=== PATIENT | female | born 1985 | race Caucasian/White ===

== ENCOUNTER 2016-06-21 21:11 | Inpatient (IN) | payer BC ==
[2016-06-21] MEDS ORDERED: Butorphanol 1 MG/ML SDV IVPUSH PRN (21:33)
[2016-06-21] MEDS ORDERED: Carboprost Tromethamine 250 MCG/1 ML Amp IM PRN (21:33)
[2016-06-21] MEDS ORDERED: Methylergonovine 0.2 MG/1 ML Amp IM PRN (21:33)
[2016-06-21] MEDS ORDERED: Water For Irrigation,Sterile 1,000 ML Container IRR PRN (21:33)
[2016-06-21] MEDS ORDERED: Misoprostol 200 MCG Tab PO PRN (21:33)
[2016-06-21] MEDS ORDERED: Sodium Chloride 0.9% 10 ML Syringe FLUSH PRN (21:33)
[2016-06-21] MEDS ORDERED: Sodium Chloride 0.9% 2.5 ML Syringe FLUSH PRN (21:33)
[2016-06-21] MEDS ORDERED: Lidocaine 1% 50 ML MDV INJECT PRN (21:33)
[2016-06-21] MEDS ORDERED: Nalbuphine 10 MG/1 ML Vial IVPUSH PRN (21:33)
[2016-06-21] MEDS: Lactated Ringers 1,000 ML IV SCH ×2 (21:40→23:01)
[2016-06-21] MEDS ORDERED: ceFAZolin 1 GM Vial IM SCH (21:45)
[2016-06-21] MEDS ORDERED: ceFAZolin 2 GM in Premix Bag 1 BAG IV ONE (21:54)
--- NOTE | 2016-06-21 23:20 | PCM.PREANE ---
Preanesthetic Assessment - Procedure Proposed Procedure: term in active labor. Requested labor epidural by RN per Dr. Lyle order. - Anesthesia/Transfusion/Family Hx Anesthesia History: Prior Anesthesia Without Reaction Family History of Anesthesia Reaction: No Transfusion History: No Prior Transfusion(s) Intubation History: Unknown - Review of Systems General: Other (labor pains) Pulmonary: No Symptoms Cardiovascular: No Symptoms Gastrointestinal: No symptoms, Other (hx of GERD with ) Neurological: No Symptoms Other: Reports: Thyroid Problems (hypothyroid on syntroid) - Physical Assessment Height: 5 ft 3 in Weight: 130 lb ASA Class: 2E ROM/Head Extension: Full Lungs: Normal respiratory effort Cardiovascular: Regular Rate - Lab Values: Laboratory Last Values WBC 11.35 K/uL (4.0-11.0) H 06/21/16 21:42 RBC 4.23 M/uL (4.30-5.90) L 06/21/16 21:42 Hgb 13.9 g/dL (12.0-16.0) 06/21/16 21:42 Hct 39.8 % (36.0-46.0) 06/21/16 21:42 MCV 94.1 fL (80.0-98.0) 06/21/16 21:42 MCH 32.9 pg (27.0-32.0) H 06/21/16 21:42 MCHC 34.9 g/dL (31.0-37.0) 06/21/16 21:42 RDW Std Deviation 47.2 fl (28.0-62.0) 06/21/16 21:42 RDW Coeff of Wendy 14 % (11.0-15.0) 06/21/16 21:42 Plt Count 142 K/uL (150-400) L 06/21/16 21:42 MPV 10.40 fL (7.40-12.00) 06/21/16 21:42 Nucleated RBC % 0.0 /100WBC 06/21/16 21:42 Nucleated RBCs # 0 K/uL 06/21/16 21:42 POC Glucose 80 mg/dL (60-110) 06/21/16 22:45 Blood Type O POSITIVE 06/21/16 21:42 Antibody Screen NEGATIVE 06/21/16 21:42 - Allergies Allergies/Adverse Reactions: Allergies Allergy/AdvReac Type Severity Reaction Status Date / Time amoxicillin [Amoxicillin] Allergy Hives Verified 06/21/16 21:32 - Blood Blood Available: No Product(s) Available: None - Acknowledgements Anesthesia Type Planned: Regional Block Pt an Appropriate Candidate for the Planned Anesthesia: Yes Alternatives and Risks of Anesthesia Discussed w Pt/Guardian: Yes Pt/Guardian Understands and Agrees with Anesthesia Plan: Yes PreAnesthesia Questionnaire DEVELOPER ARCHITECT History: Reports: , Other (see below) Other OB/BYN History: D & C x1 Endocrine/Metabolic History: Reports: Diabetes, gestational, Hypothyroidism - Past Surgical History HEENT Surgical History: Reports: Tonsillectomy - SUBSTANCE USE Smoking Status *Q: Never Smoker - HOME MEDS Home Medications: Home Meds Levothyroxine 112 mcg PO ACBREAKFAST 06/21/16 [History] Vit W-Ca,Fe,FA(<1 mg) [ Vitamins] 1 tab PO DAILY 06/21/16 [ History] - CURRENT (IN HOUSE) MEDS Current Meds: Current Medications Butorphanol Tartrate (Stadol) 1 mg IVPUSH Q1H PRN PRN Reason: Pain Carboprost Tromethamine (Hemabate Ds) 250 mcg IM ASDIRECTED PRN PRN Reason: Post Hemorrhage Cefazolin Sodium (Ancef) 1 gm IM Q8H SANDHYA Cefazolin Sodium (Ancef) 1 gm IM Q8H SANDHYA Lactated Ringer's (Ringers, Lactated) 1,000 mls @ 150 mls/hr IV ASDIRECTED SANDHYA Last Admin: 06/21/16 23:01 Dose: 999 mls/hr Lidocaine HCl (Xylocaine 1%) 50 ml INJECT .ONCE PRN PRN Reason: Laceration repair Methylergonovine Maleate (Methergine) 0.2 mg IM ASDIRECTED PRN PRN Reason: Post Hemorrhage Misoprostol (Cytotec) 200 mcg PO .ONCE PRN PRN Reason: Post Hemorrhage Nalbuphine HCl (Nubain) 10 mg IVPUSH Q1H PRN PRN Reason: Pain (severe 7-10) Stop: 06/21/16 23:34 Sodium Chloride (Saline Flush) 10 ml FLUSH ASDIRECTED PRN PRN Reason: Keep Vein Open Sodium Chloride (Saline Flush) 2.5 ml FLUSH ASDIRECTED PRN PRN Reason: Keep Vein Open Sterile Water (Sterile Water For Irrigation) 1,000 ml IRR ASDIRECTED PRN PRN Reason: delivery Discontinued Medications Oxytocin/Lactated Ringer's (Pitocin In Lr 30 Units/500 Ml) 30 unit in 500 mls @ 999 mls/hr IV ONETIME ONE Stop: 06/21/16 22:04 Cefazolin Sodium/Dextrose 2 gm (/ Premix) 50 mls @ 100 mls/hr IV ONETIME ONE Stop: 06/21/16 22:23 Last Admin: 06/21/16 21:59 Dose: 100 mls/hr Preanesthetic Assessment - ANESTHESIA/TRANSFUSION/FAMILY HX Anesthesia/Transfusion History: Prior Anesthesia (GA without complications) Family History of Anesthesia Reaction: No - PHYSICAL ASSESSMENT Height: 5 ft 3 in Weight: 130 lb - LAB Values: Laboratory Last Values WBC 11.35 K/uL (4.0-11.0) H 06/21/16 21:42 RBC 4.23 M/uL (4.30-5.90) L 06/21/16 21:42 Hgb 13.9 g/dL (12.0-16.0) 06/21/16 21:42 Hct 39.8 % (36.0-46.0) 06/21/16 21:42 MCV 94.1 fL (80.0-98.0) 06/21/16 21:42 MCH 32.9 pg (27.0-32.0) H 06/21/16 21:42 MCHC 34.9 g/dL (31.0-37.0) 06/21/16 21:42 RDW Std Deviation 47.2 fl (28.0-62.0) 06/21/16 21:42 RDW Coeff of Wendy 14 % (11.0-15.0) 06/21/16 21:42 Plt Count 142 K/uL (150-400) L 06/21/16 21:42 MPV 10.40 fL (7.40-12.00) 06/21/16 21:42 Nucleated RBC % 0.0 /100WBC 06/21/16 21:42 Nucleated RBCs # 0 K/uL 06/21/16 21:42 POC Glucose 80 mg/dL (60-110) 06/21/16 22:45 Blood Type O POSITIVE 06/21/16 21:42 Antibody Screen NEGATIVE 06/21/16 21:42 - ALLERGIES Allergies/Adverse Reactions: Allergies Allergy/AdvReac Type Severity Reaction Status Date / Time amoxicillin [Amoxicillin] Allergy Hives Verified 06/21/16 21:32
[2016-06-21] MEDS ORDERED: Ropivacaine 0.2% 2 MG/ML 20 ML SDV ONE (23:26)
[2016-06-21] MEDS ORDERED: Ropivacaine HCl/PF 100 ML ONE (23:26)
[2016-06-21] MEDS ORDERED: fentaNYL 100 MCG/2 ML SDV ONE (23:26)
[2016-06-22] MEDS: Lactated Ringers 1,000 ML IV SCH (00:01)
[2016-06-22] MEDS: Oxytocin/Lactated Ringers 30 UNIT/500 ML BAG IV ONE ×2 (00:15→00:46)
--- NOTE | 2016-06-22 00:23 | PCM.SN ---
- Free Text/Narrative Note: Patient chart reviewed. See anesthesia documentation.Patient in active labor and on floor on all fours. Rapidly discussed epidural plan and need to get into bed as previously directed on the phone with nursing staff. Her back was prepared with betadine from the Goldstein kit. sterile drape applied. L45 interspace midline palpated and injected with 5 ml !%lidocaine. 17g Touhy needle then passed into the interspace....reset twice since bone encountered. successful loss of resistance then found, 2 ml sterile saline then injected, catheter then place to 18cm known by having removed the needle over the catheter. The catheter was secured with a provided sponge and transparent dressing. Dosing via catheter then occurred with 12ml 0.2%ropivacaine containing 100mcg fentanyl over the next 5-10 minutes. Completion of a full 20ml Ropivacaine then was completed over the next 15-20 min. Exam by RN then indicated complete dilation had occurred and Dr. Lyle was summoned. The pump will be connected if delivery does not occur in the next 30-45 minutes. I will remain at the bedside.
[2016-06-22] MEDS ORDERED: Oxytocin/Lactated Ringers 30 UNIT/500 ML BAG ONE (00:36)
[2016-06-22] MEDS ORDERED: Ibuprofen 800 MG Tab PO PRN (00:39)
[2016-06-22] MEDS ORDERED: Acetaminophen 500 MG Tab PO PRN (00:39)
[2016-06-22] MEDS ORDERED: Docusate Sodium 100 MG Cap PO PRN (00:39)
[2016-06-22] MEDS ORDERED: oxyCODONE 5 MG Tab PO PRN (00:39)
[2016-06-22] MEDS ORDERED: Witch Hazel Medicated Pads 40/Jar TOP PRN (00:39)
[2016-06-22] MEDS ORDERED: Lanolin 100% Cream 7 GM Tube TOP PRN (00:39)
[2016-06-22] MEDS ORDERED: Benzocaine/Menthol 20%-0.5% Spray 78 GM Cannister TOP PRN (00:39)
[2016-06-22] MEDS ORDERED: Bisacodyl 10 MG Supp RECTAL PRN (00:39)
--- NOTE | 2016-06-22 03:13 | OR ---
SURGEON: Agnes Lyle M.D. DATE OF PROCEDURE: 06/22/2016 DELIVERY NOTE PREOPERATIVE DIAGNOSES: 1. Thirty-eight and 3/7th week intrauterine . 2. Group B strep positive. 3. Gestational diabetes mellitus, type A1. 4. renal dilatation. POSTOPERATIVE DIAGNOSES: 1. Thirty-eight and 3/7th week intrauterine . 2. Group B strep positive. 3. Gestational diabetes mellitus, type A1. 4. renal dilatation. PROCEDURE: Term spontaneous vaginal delivery with repair of periurethral laceration. ANESTHESIA: Epidural. ESTIMATED BLOOD LOSS: Less than 300 mL. FINDINGS: Liveborn female, score 8 and 9, weighing 2870 g, placenta spontaneous, Schultze intact with 3 vessels. Upon inspection of the pelvis and perineum, there were no vaginal sidewall, cervical, rectal, or perineal lacerations. There was a small anterior periurethral laceration, which was repaired. COMPLICATIONS: None known. DISPOSITION: Mother and baby are in LDRP in good condition. BRIEF HISTORY: This is a 31-year-old female. She is G4, P1-0-2-1. She presents at 38 and 3/7th weeks gestation in active spontaneous labor, category 1 heart tones. She was started on Ancef for group B strep prophylaxis due to allergy to penicillin. She was admitted to Labor and Delivery. She progressed to 8 cm dilatation. At this point, she requested epidural, which she did receive and she progressed shortly thereafter to complete. DESCRIPTION OF PROCEDURE: With the patient in dorsal lithotomy position, with rupture of membranes, the patient pushed over 2 contractions to a 5+ station, at which time, the head was delivered spontaneously and atraumatically over the perineum with support with subsequent delivery of the 's shoulders and body without any difficulty. The infant was bulb suctioned by nose and mouth and the was handed to the mother in the presence of the nurse and Dr. Gavin, who were present for delivery. The infant was a liveborn female, score 8 and 9, weighing 2870 g. After the cord had ceased to pulsate, it was doubly clamped and cut. Cord blood was collected for cord ABGs as well as routine cord blood sampling. Pitocin was initiated after delivery of the to assist with delivery of the placenta, which was delivered spontaneously. Lazaratze intact with 3 vessels. Upon inspection of the pelvis and perineum, there were no vaginal sidewall, cervical, rectal, or perineal lacerations. There was a small anterior periurethral laceration, therefore, the urethral area was cleansed with Betadine. A Keenan catheter was placed and the [id number] suture was placed for hemostasis and to reapproximate the epithelium. The single suture adequately reapproximated the laceration. With this being complete, sponge, needle, and instrument count were correct. There were no known complications. and mother are in LDRP in good condition. LILI HUERTA /[id number]
[2016-06-22 05:55] LABS: CHLORIDE,CL 110 mmol/L (98-110); SODIUM,NA 139 mmol/L (136-146)
[2016-06-22] MEDS ORDERED: ceFAZolin 1 GM Vial IM SCH (06:00)
--- NOTE | 2016-06-22 09:30 | PCM.PNPP ---
- General Info Date of Service: 06/22/16 Functional Status: Reports: pain controlled, tolerating diet, ambulating - Review of Systems General: Reports: No Symptoms HEENT: Reports: no symptoms Pulmonary: Reports: no symptoms Cardiovascular: Reports: No Symptoms Gastrointestinal: Reports: No symptoms Genitourinary: Reports: no symptoms Musculoskeletal: Reports: no symptoms Skin: Reports: no symptoms Neurological: Reports: No Symptoms Psychiatric: Reports: no symptoms - General Info Date of Service: 06/22/16 - Patient Data Vital Signs - most recent: Last Vital Signs Temp 37.4 C 06/22/16 06:30 Pulse 71 06/22/16 06:30 Resp 18 06/22/16 06:30 BP 117/74 06/22/16 06:30 Pulse Ox 96 06/22/16 06:30 Weight - most recent: 68.039 kg I&O - last 24 hours: Intake & Output 06/21/16 06/22/16 06/22/16 22:59 06:59 14:59 Intake Total 50 3100 Balance 50 3100 Lab Results - last 24 hrs: Laboratory Results - last 24 hr 06/21/16 06/21/16 06/21/16 Range/Units 21:42 21:42 22:45 WBC 11.35 H (4.0-11.0) K/uL RBC 4.23 L (4.30-5.90) M/uL Hgb 13.9 (12.0-16.0) g/dL Hct 39.8 (36.0-46.0) % MCV 94.1 (80.0-98.0) fL MCH 32.9 H (27.0-32.0) pg MCHC 34.9 (31.0-37.0) g/dL RDW Std Deviation 47.2 (28.0-62.0) fl RDW Coeff of Wendy 14 (11.0-15.0) % Plt Count 142 L (150-400) K/uL MPV 10.40 (7.40-12.00) fL Nucleated RBC % 0.0 /100WBC Nucleated RBCs # 0 K/uL Sodium (136-146) mmol/L Potassium (3.5-5.1) mmol/L Chloride (98-110) mmol/L Carbon Dioxide (21-31) mmol/L BUN (6.0-23.0) mg/dL Creatinine (0.6-1.5) mg/dL Est Cr Clr Drug Dosing mL/min Estimated GFR (MDRD) ml/min Glucose (60-110) mg/dL POC Glucose 80 (60-110) mg/dL Calcium (8.8-10.8) mg/dL Blood Type O POSITIVE Antibody Screen NEGATIVE 06/22/16 06/22/16 Range/Units 05:08 05:08 WBC (4.0-11.0) K/uL RBC (4.30-5.90) M/uL Hgb 12.8 (12.0-16.0) g/dL Hct 37.8 (36.0-46.0) % MCV (80.0-98.0) fL MCH (27.0-32.0) pg MCHC (31.0-37.0) g/dL RDW Std Deviation (28.0-62.0) fl RDW Coeff of Wendy (11.0-15.0) % Plt Count (150-400) K/uL MPV (7.40-12.00) fL Nucleated RBC % /100WBC Nucleated RBCs # K/uL Sodium 139 (136-146) mmol/L Potassium 3.7 (3.5-5.1) mmol/L Chloride 110 (98-110) mmol/L Carbon Dioxide 21 (21-31) mmol/L BUN 13 (6.0-23.0) mg/dL Creatinine 0.6 (0.6-1.5) mg/dL Est Cr Clr Drug Dosing 111.35 mL/min Estimated GFR (MDRD) > 60.0 ml/min Glucose 85 (60-110) mg/dL POC Glucose (60-110) mg/dL Calcium 7.9 L (8.8-10.8) mg/dL Blood Type Antibody Screen Med Orders - Current: Current Medications Acetaminophen (Tylenol Extra Strength) 1,000 mg PO Q4H PRN PRN Reason: Pain Benzocaine/Menthol (Dermoplast Pain Relief 20%-0.5% Greene) 78 gm TOP ASDIRECTED PRN PRN Reason: Perineal Comfort Measure Last Admin: 06/22/16 06:29 Dose: 1 canister Bisacodyl (Dulcolax) 10 mg RECTAL .ONCE PRN PRN Reason: Constipation Docusate Sodium (Colace) 100 mg PO BID PRN PRN Reason: Constipation Emollient Ointment (Lansinoh Hpa) 0 gm TOP ASDIRECTED PRN PRN Reason: Sore Nipples Last Admin: 06/22/16 06:29 Dose: 1 tube Ibuprofen (Motrin) 800 mg PO Q6H PRN PRN Reason: Pain Last Admin: 06/22/16 06:30 Dose: 800 mg Oxycodone HCl (Oxycodone) 5 mg PO Q2H PRN PRN Reason: Pain Witch Maeve (Tucks) 1 pad TOP ASDIRECTED PRN PRN Reason: comfort care Last Admin: 06/22/16 06:28 Dose: 1 canister Discontinued Medications Butorphanol Tartrate (Stadol) 1 mg IVPUSH Q1H PRN PRN Reason: Pain Carboprost Tromethamine (Hemabate Ds) 250 mcg IM ASDIRECTED PRN PRN Reason: Post Hemorrhage Cefazolin Sodium (Ancef) 1 gm IM Q8H SANDHYA Cefazolin Sodium (Ancef) 1 gm IM Q8H [facility] Fentanyl (Sublimaze) Confirm Administered Dose 100 mcg .ROUTE .STK-MED ONE Stop: 06/21/16 23:27 Lactated Ringer's (Ringers, Lactated) 1,000 mls @ 150 mls/hr IV ASDIRECTED [facility] Last Admin: 06/22/16 00:01 Dose: 150 mls/hr Oxytocin/Lactated Ringer's (Pitocin In Lr 30 Units/500 Ml) 30 unit in 500 mls @ 999 mls/hr IV ONETIME ONE Stop: 06/21/16 22:04 Last Admin: 06/22/16 00:46 Dose: 250 mls/hr Cefazolin Sodium/Dextrose 2 gm (/ Premix) 50 mls @ 100 mls/hr IV ONETIME ONE Stop: 06/21/16 22:23 Last Admin: 06/21/16 21:59 Dose: 100 mls/hr Ropivacaine (Naropin 0.2%) Confirm Administered Dose 100 mls @ as directed .ROUTE .STK-MED ONE Stop: 06/21/16 23:27 Oxytocin/Lactated Ringer's (Pitocin In Lr 30 Units/500 Ml) Confirm Administered Dose 30 unit in 500 mls @ as directed .ROUTE .STK-MED ONE Stop: 06/22/16 00:37 Lidocaine HCl (Xylocaine 1%) 50 ml INJECT .ONCE PRN PRN Reason: Laceration repair Methylergonovine Maleate (Methergine) 0.2 mg IM ASDIRECTED PRN PRN Reason: Post Hemorrhage Misoprostol (Cytotec) 200 mcg PO .ONCE PRN PRN Reason: Post Hemorrhage Nalbuphine HCl (Nubain) 10 mg IVPUSH Q1H PRN PRN Reason: Pain (severe 7-10) Stop: 06/21/16 23:34 Ropivacaine (Naropin 0.2%) Confirm Administered Dose 20 ml .ROUTE .STK-MED ONE Stop: 06/21/16 23:27 Sodium Chloride (Saline Flush) 10 ml FLUSH ASDIRECTED PRN PRN Reason: Keep Vein Open Sodium Chloride (Saline Flush) 2.5 ml FLUSH ASDIRECTED PRN PRN Reason: Keep Vein Open Sterile Water (Sterile Water For Irrigation) 1,000 ml IRR ASDIRECTED PRN PRN Reason: delivery Last Admin: 06/22/16 00:10 Dose: 1,000 ml - Infant Interaction Infant Disposition, : at Bedside Support Person: - Recovery Exam Fundal Tone: Firm Fundal Level: At Umbilicus Fundal Placement: Midline Lochia Amount: Scant, Small Lochia Color: Rubra/Red Perineum Description: Intact, Minimal Bruising/Swelling Episiotomy/Laceration: Approximated Bladder Status: Indwelling Catheter in Place - Exam General: alert, oriented HEENT: Pupils equal Neck: supple Lungs: Clear to auscultation, Normal respiratory effort Abdomen: soft, no tenderness, no distension Extremities: no edema Skin: warm, dry, intact Wound/Incisions: healing well Neurological: no new focal deficit Psy/Mental Status: alert, normal affect, normal mood - Problem List & Annotations (1) Gestational diabetes mellitus (GDM) in childbirth SNOMED Code(s): 14083644 Code(s): O24.429 - GESTATIONAL DIABETES MELLITUS IN CHILDBIRTH, UNSP CONTROL Status: Acute Current Visit: Yes (2) Vaginal delivery SNOMED Code(s): 351653219 Code(s): O80 - ENCOUNTER FOR FULL-TERM UNCOMPLICATED DELIVERY Status: Acute Current Visit: No - Problem List Review Problem List Initiated/Reviewed/Updated: Yes - My Orders Last 24 Hours: My Active Orders 06/21/16 21:33 Heart Tones [RC] CONTINUOUS Non Stress Test [RC] PER UNIT ROUTINE May Shower [RC] ASDIRECTED Notify Provider [RC] PRN Up ad Jacqui [RC] ASDIRECTED Vaginal Exam [RC] PRN Vital Signs [RC] PER UNIT ROUTINE 06/22/16 00:39 Patient Status [ADT] Routine May Shower [RC] ASDIRECTED Up ad Jacqui [RC] ASDIRECTED Urinary Catheter Removal [RC] Per Unit Routine Vital Signs [RC] PER UNIT ROUTINE Acetaminophen [Tylenol Extra Strength] 1,000 mg PO Q4H PRN Benzocaine/Menthol [Dermoplast Pain Relief 20%-0.5% Greene] 78 gm TOP ASDIRECTED PRN Bisacodyl [Dulcolax] 10 mg RECTAL .ONCE PRN Docusate Sodium [Colace] 100 mg PO BID PRN Ibuprofen [Motrin] 800 mg PO Q6H PRN Lanolin [Lansinoh HPA] See Dose Instructions TOP ASDIRECTED PRN Witch Maeve [Tucks] 1 pad TOP ASDIRECTED PRN oxyCODONE 5 mg PO Q2H PRN Assess Lochia [WOMSER] Per Unit Routine Assess Uterine Involution [WOMSER] Per Unit Routine Peripheral IV Discontinue [OM.PC] Routine Resuscitation Status Routine 06/22/16 00:40 Perineal Care [OM.PC] Per Unit Routine 06/22/16 Breakfast Regular Diet [DIET] 06/23/16 05:11 HEMOGLOBIN/HEMATOCRIT,HH [HEME] Timed - Assessment Assessment:: PPD #1 after stable, minimal lochia, no complaints, - Plan Plan:: Remove catheter, ambulate continue care.
--- NOTE | 2016-06-22 10:40 | PCM48HPAN ---
Post Anesthesia Note - EVALUATION WITHIN 48HRS OF ANESTHETIC Vital Signs in Normal Range: Yes Patient Participated in Evaluation: Yes Respiratory Function Stable: Yes Airway Patent: Yes Cardiovascular Function Stable: Yes Hydration Status Stable: Yes Pain Control Satisfactory: Yes Nausea and Vomiting Control Satisfactory: Yes Mental Status Recovered: Yes - COMMENTS/OBSERVATIONS Free Text/Narrative:: Pressure bandage over epidural access site was removed. Skin and area dry, non- erythematous, and not tender per patient response.
--- NOTE | 2016-06-23 08:38 | PCM.PNPP ---
- General Info Date of Service: 06/23/16 Functional Status: Reports: pain controlled, tolerating diet, ambulating, urinating - Review of Systems General: Denies: Fever, Fatigue, Chills HEENT: Denies: headaches Pulmonary: Denies: shortness of breath, pleuritic chest pain, cough Cardiovascular: Denies: Chest Pain Gastrointestinal: Denies: Abdominal pain Genitourinary: Denies: dysuria, incontinence Neurological: Denies: Confusion Psychiatric: Denies: depression, mood lability, anxiety - General Info Date of Service: 06/23/16 - Patient Data Vital Signs - most recent: Last Vital Signs Temp 37.2 C 06/23/16 04:00 Pulse 69 06/23/16 04:00 Resp 18 06/23/16 04:00 BP 112/70 06/23/16 04:00 Pulse Ox 98 06/22/16 19:00 Weight - most recent: 150 lb Lab Results - last 24 hrs: Laboratory Results - last 24 hr 06/23/16 Range/Units 04:43 Hgb 13.1 (12.0-16.0) g/dL Hct 39.4 (36.0-46.0) % Med Orders - Current: Current Medications Acetaminophen (Tylenol Extra Strength) 1,000 mg PO Q4H PRN PRN Reason: Pain Benzocaine/Menthol (Dermoplast Pain Relief 20%-0.5% Sutton) 78 gm TOP ASDIRECTED PRN PRN Reason: Perineal Comfort Measure Last Admin: 06/22/16 06:29 Dose: 1 canister Bisacodyl (Dulcolax) 10 mg RECTAL .ONCE PRN PRN Reason: Constipation Docusate Sodium (Colace) 100 mg PO BID PRN PRN Reason: Constipation Emollient Ointment (Lansinoh Hpa) 0 gm TOP ASDIRECTED PRN PRN Reason: Sore Nipples Last Admin: 06/22/16 06:29 Dose: 1 tube Ibuprofen (Motrin) 800 mg PO Q6H PRN PRN Reason: Pain Last Admin: 06/22/16 06:30 Dose: 800 mg Oxycodone HCl (Oxycodone) 5 mg PO Q2H PRN PRN Reason: Pain Witch Maeve (Tucks) 1 pad TOP ASDIRECTED PRN PRN Reason: comfort care Last Admin: 06/22/16 06:28 Dose: 1 canister Discontinued Medications Butorphanol Tartrate (Stadol) 1 mg IVPUSH Q1H PRN PRN Reason: Pain Carboprost Tromethamine (Hemabate Ds) 250 mcg IM ASDIRECTED PRN PRN Reason: Post Hemorrhage Cefazolin Sodium (Ancef) 1 gm IM Q8H [facility] Cefazolin Sodium (Ancef) 1 gm IM Q8H [facility] Fentanyl (Sublimaze) Confirm Administered Dose 100 mcg .ROUTE .STK-MED ONE Stop: 06/21/16 23:27 Lactated Ringer's (Ringers, Lactated) 1,000 mls @ 150 mls/hr IV ASDIRECTED [facility] Last Admin: 06/22/16 00:01 Dose: 150 mls/hr Oxytocin/Lactated Ringer's (Pitocin In Lr 30 Units/500 Ml) 30 unit in 500 mls @ 999 mls/hr IV ONETIME ONE Stop: 06/21/16 22:04 Last Admin: 06/22/16 00:46 Dose: 250 mls/hr Cefazolin Sodium/Dextrose 2 gm (/ Premix) 50 mls @ 100 mls/hr IV ONETIME ONE Stop: 06/21/16 22:23 Last Admin: 06/21/16 21:59 Dose: 100 mls/hr Ropivacaine (Naropin 0.2%) Confirm Administered Dose 100 mls @ as directed .ROUTE .STK-MED ONE Stop: 06/21/16 23:27 Oxytocin/Lactated Ringer's (Pitocin In Lr 30 Units/500 Ml) Confirm Administered Dose 30 unit in 500 mls @ as directed .ROUTE .STK-MED ONE Stop: 06/22/16 00:37 Lidocaine HCl (Xylocaine 1%) 50 ml INJECT .ONCE PRN PRN Reason: Laceration repair Methylergonovine Maleate (Methergine) 0.2 mg IM ASDIRECTED PRN PRN Reason: Post Hemorrhage Misoprostol (Cytotec) 200 mcg PO .ONCE PRN PRN Reason: Post Hemorrhage Nalbuphine HCl (Nubain) 10 mg IVPUSH Q1H PRN PRN Reason: Pain (severe 7-10) Stop: 06/21/16 23:34 Ropivacaine (Naropin 0.2%) Confirm Administered Dose 20 ml .ROUTE .STK-MED ONE Stop: 06/21/16 23:27 Sodium Chloride (Saline Flush) 10 ml FLUSH ASDIRECTED PRN PRN Reason: Keep Vein Open Sodium Chloride (Saline Flush) 2.5 ml FLUSH ASDIRECTED PRN PRN Reason: Keep Vein Open Sterile Water (Sterile Water For Irrigation) 1,000 ml IRR ASDIRECTED PRN PRN Reason: delivery Last Admin: 06/22/16 00:10 Dose: 1,000 ml - Infant Interaction Disposition, : [place] at Bedside Support Person: - Recovery Exam Fundal Tone: Firm Fundal Level: 1 Fingerbreadths Below Umbilicus Fundal Placement: Midline Lochia Amount: Scant Lochia Color: Rubra/Red Perineum Description: Intact, Minimal Bruising/Swelling Episiotomy/Laceration: Approximated Bladder Status: Voiding Urinary Elimination: Voided Other Urinary Elimination, : catheter removed. - Exam General: alert HEENT: Pupils equal Neck: supple Lungs: Clear to auscultation, Normal respiratory effort Cardiovascular: Regular Rate, Regular Rhythm Abdomen: bowel sounds present, soft, no tenderness, no distension Extremities: no calf tenderness, edema Neurological: no new focal deficit Psy/Mental Status: alert, normal affect, normal mood - Problem List & Annotations (1) Gestational diabetes mellitus (GDM) in childbirth SNOMED Code(s): 75938796 Code(s): O24.429 - GESTATIONAL DIABETES MELLITUS IN CHILDBIRTH, UNSP CONTROL Status: Acute Current Visit: Yes (2) Vaginal delivery SNOMED Code(s): 868278315 Code(s): O80 - ENCOUNTER FOR FULL-TERM UNCOMPLICATED DELIVERY Status: Acute Current Visit: No - Problem List Review Problem List Initiated/Reviewed/Updated: Yes - Assessment Assessment:: PPD #2 after stable with no complaints - Plan Plan:: Discharge instructions reviewed Nothing in the vagina for 6 weeks Bleeding and infection precautions reviewed Continun PNV OTC pain meds as needed Follow up in 6 weeks
[2016-06-23 10:17] VITALS: BP 136/80
== END 2016-06-23 15:15 | disposition home or self-care (01) | DRG 560 ==
LOC: MW.OBCHECK 21:11 → MW.OB 21:22 → MW.OBCHECK 21:33 → OBSVTOIN 06-22 00:14
PROVIDERS: ADMIT Obstetrics & Gynecology; ATTEND Obstetrics & Gynecology
PROC: 10E0XZZ Delivery of Products of Conception, External Approach (ICD-10-PCS; principal; 2016-06-22)
PROC: 0HQ9XZZ Repair Perineum Skin, External Approach (ICD-10-PCS; 2016-06-22)
DX: O24.429 Gestational diabetes mellitus in childbirth, unspecified control (principal); O70.0 First degree perineal laceration during delivery; O35.8XX0 Maternal care for other (suspected) fetal abnormality and damage, not applicable or unspecified; Z3A.38 38 weeks gestation of pregnancy; Z37.0 Single live birth; Z22.330 Carrier of Group B streptococcus
CPT/HCPCS: 01967; 36415; 51703; 59025; 80048; 82962; 85014; 85018; 85027; 86850; 86900; 86901; A9270-GY; J0690; J7120

== ENCOUNTER 2022-07-17 15:21 | Emergency (ER) | payer OTHER ==
[2022-07-17] MEDS ORDERED: Lidocaine 1% PF 2 ML SDV INJECT ONE (15:26)
[2022-07-17] MEDS ORDERED: Diphtheria,Pertussis(Acell),Tetanus Vaccine 0.5 ML Syringe IM ONE (15:26)
[2022-07-17 15:55] VITALS: BP 145/81; PULSE 99
== END 2022-07-17 16:59 | disposition home or self-care (01) ==
LOC: MW.ED 15:21
DX: S61.211A Laceration without foreign body of left index finger without damage to nail, initial encounter (principal); E03.9 Hypothyroidism, unspecified; Z23 Encounter for immunization; Z88.0 Allergy status to penicillin; Z79.899 Other long term (current) drug therapy; W26.0XXA Contact with knife, initial encounter
CPT/HCPCS: 12001; 90471; 90715; 99282-25; 99283; J3490

== ENCOUNTER 2022-07-26 08:12 | Emergency (ER) | payer OTHER ==
[2022-07-26 08:20] VITALS: BP 132/82; PULSE 108
== END 2022-07-26 08:26 | disposition left against medical advice (07) ==
LOC: MW.ED 08:12
DX: Z53.1 Procedure and treatment not carried out because of patient's decision for reasons of belief and group pressure (principal)